=== PATIENT | male | born 1970 | race American Indian/Alaskan Native ===

== ENCOUNTER 2016-10-12 02:42 | Emergency (ER) | payer SELFPAY | END 2016-10-12 03:07 | disposition left against medical advice (07) | LOC: ED 02:42 | DX: F10.239 Alcohol dependence with withdrawal, unspecified (principal); Y90.9 Presence of alcohol in blood, level not specified; Z53.21 Procedure and treatment not carried out due to patient leaving prior to being seen by health care provider ==